=== PATIENT | male | born 1965 | race Caucasian/White ===

== ENCOUNTER 2019-07-31 10:26 | Inpatient (IN) ==
--- NOTE | 2019-07-13 10:40 | PAT Medication Instructions ---
Medication Instructions Date of Service July 13, 2019 Home Medications brimonidine 1 drp OPB BID dorzolamide-timolol 1 drp OPB TID latanoprost 1 drp OPB HS omeprazole 40 mg PO DAILY PRN sucralfate 1 g PO UD Medical Marijuana Card 1 dose UD PRN oxycodone 5 mg PO UD PRN prednisolone acetate 3 drp OPHTHALMIC (EYE) DAILY Continue as directed Medical Marijuana Card 1 dose UD PRN DO NOT take the morning of surgery sucralfate 1 g PO UD Take morning of surgery With a small sip of water, OTHERWISE NOTHING TO EAT OR DRINK AFTER MIDNIGHT: brimonidine 1 drp OPB BID dorzolamide-timolol 1 drp OPB TID omeprazole 40 mg PO DAILY PRN (if needed) oxycodone 5 mg PO UD PRN (okay to take up to 4 hours prior to surgery if needed) prednisolone acetate 3 drp OPHTHALMIC (EYE) DAILY Take evening before surgery brimonidine 1 drp OPB BID dorzolamide-timolol 1 drp OPB TID latanoprost 1 drp OPB HS omeprazole 40 mg PO DAILY PRN (if needed) sucralfate 1 g PO UD oxycodone 5 mg PO UD PRN (if needed) Other Notes If you have any questions please call us at [phone] or [phone] or [phone] or [phone]
--- NOTE | 2019-07-13 15:23 | Anesthesiology Consultation ---
Date of Service July 13, 2019 Assessment & Plan (1) Encounter for pre-operative examination: Chart Review Chart Review: Acceptable Risk for Surgery, Pending: Refer to Additional Notes / Consult section (pending preop labs) and Patient seen in Pre Admission Testing Consults Requested none Teaching & Discussion Pre-Anesthesia Teaching/Discussion Notes: Instructed NPO after midnight before surgery,except medications with 15 cc of water. Medication instructions provided according to the PAT guidelines. History Surgery Operation Date: 07/31/19 13:05 Proposed Procedures p L3-L4 Decompression and Fusion, Possible L2-L4 Fusion, L4-L5 Hardware Removal, Spinal Cord Monitoring - Cuate Kelly DO Height/Weight Height: 6 ft 3 in Weight: 110.9 kg Allergies Allergy/AdvReac Type Severity Reaction Status Date / Time Sulfa (Sulfonamide Allergy Unknown HIVES Verified 07/10/19 14:02 Antibiotics) Medications Home Medications Medication Instructions Recorded Confirmed Last Taken brimonidine 1 drp OPB BID 06/29/19 07/10/19 Unknown dorzolamide-timolol 1 drp OPB TID 06/29/19 07/10/19 Unknown latanoprost 1 drp OPB HS 06/29/19 07/10/19 Unknown omeprazole 40 mg PO DAILY PRN 06/29/19 07/10/19 Unknown sucralfate 1 g PO UD 06/29/19 07/10/19 Unknown Medical Marijuana Card 1 dose UD PRN 07/10/19 07/10/19 Unknown oxycodone 5 mg PO UD PRN 07/10/19 07/10/19 Unknown prednisolone acetate 3 drp OPHTHALMIC (EYE) DAILY 07/10/19 07/10/19 Unknown Past Medical History Medical History Acid reflux Depression Glaucoma History of anxiety History of peptic ulcer History of simple renal cyst right Neck problem Limited side to side ROM when "cold" 2/2 arthritis Sleep apnea could not tolerate CPAP trial- improved symptoms since weight loss Spinal stenosis Exercise / Class Metabolic Activity III < 4 Walking/Shop/Light housework (uses cane PRN) Past Family History Family History Mother Family history of diabetes mellitus (DM) Grandfather Family history of colon cancer Other Cancer Past Surgical History Surgical History History of colonoscopy History of endoscopy UPPER GI History of eye surgery R EYE RETINA TEAR REPAIR (06/2019) History of lumbar fusion History of shoulder surgery LEFT Past Anesthesia History No Hx of Anesthesia Complications Brother: "slow to wake" History of PONV No Hx of PONV and No Hx of Motion Sickness Social History Smoking Status: Current every day smoker tobacco type: cigarettes Smoking cigarettes per day: 10 CIGS/DAY X INTERMITTENT 30+ YEARS Do You Dip or Chew Tobacco: No (HX OF, NONE CURRENT) Hx Alcohol Use: No Hx Substance Use: Yes substance use type: prescription drug and other Substance Use Type Other:: MEDICAL MARIJUANA CARD - ORAL/INHALED PRN PAIN; ADVISED [facility] PROTOCOL Review of Systems Patient denies chest pain, shortness of breath, cough, wheezing, palpitations. Physical Exam Vital Signs VITALS BP 107/74 P 83 TEMP 98.3 SP02 92%RA RESP 16 PHYSICAL Full neck and c-spine range of motion. Full TMJ range of motion. TMD 3 finger breaths Mallampati Score 2 Dentition: lower partial Lungs: clear throughout to auscultation Cardiac: regular rate and rhythm, no murmurs noted Spine: normal Carotid arteries: negative bruit Extremities: no edema Testing Laboratory Results PT 10.6 Seconds (9.0-12.0) 07/13/19 15:57 INR 1.0 (0.9-1.1) 07/13/19 15:57 APTT 25.7 Seconds (21.0-31.0) 07/13/19 15:57 Blood Type O Positive 07/13/19 15:57 Antibody Screen NEGATIVE 07/13/19 15:57 06/29/19 WBC 6.85 H/H 15.9/44.4 PLATELETS 200 SODIUM 140 POTASSIUM 3.7 CHLORIDE 107 CO2 28 BUN 13 CREATININE 1.26 GLUCOSE 146 TSH 0.700 (WNL) UA negative Electrocardiogram Date: 06/29/19 NSR at 66bpm. "Normal" ECG. *Poor data quality* Chest X-Ray Date: 06/29/19 Findings: + NAD
[2019-07-13 16:34] LABS: Partial Thromboplastin Ratio 0.9; Partial Thromboplastin Time 25.7 Seconds (21.0-31.0); Prothrombin Time 10.6 Seconds (9.0-12.0)
--- NOTE | 2019-07-31 09:33 | History & Physical Bridge Note ---
Date of Service July 31, 2019 History & Physical Bridge Note I have examined the patient, reviewed the History & Physical and in the interval since the performance of the History & Physical I have noted the following changes of clinical significance: no changes noted
--- NOTE | 2019-07-31 09:34 | History & Physical Report ---
Date of Service July 31, 2019 Assessment & Plan (1) Spinal stenosis, lumbar region with neurogenic claudication: Decompression and fusion L3-L4 possible fusion L2-L4 hardware removal L4- L5 Present on Admission?: Yes History of Present Illness Chief Complaint: Back and bilateral leg pain Primary Care Provider: Moises Gayle DO This is a 54-year-old male well-known to us that presents with chronic persistent back and bilateral leg pain. After failing extensive course of nonoperative care is here for surgical intervention. Allergies Allergy/AdvReac Type Severity Reaction Status Date / Time Sulfa (Sulfonamide Allergy Unknown HIVES Verified 07/10/19 14:02 Antibiotics) Home Medications Home Medications Medication Instructions Recorded Confirmed Type brimonidine 1 drp OPB BID 06/29/19 07/10/19 History dorzolamide-timolol 1 drp OPB TID 06/29/19 07/10/19 History latanoprost 1 drp OPB HS 06/29/19 07/10/19 History omeprazole 40 mg PO DAILY PRN 06/29/19 07/10/19 History sucralfate 1 g PO UD 06/29/19 07/10/19 History Medical Marijuana Card 1 dose UD PRN 07/10/19 07/10/19 History oxycodone 5 mg PO UD PRN 07/10/19 07/10/19 History prednisolone acetate 3 drp OPHTHALMIC (EYE) DAILY 07/10/19 07/10/19 History Past Med/Surg History Medical History Acid reflux Depression Glaucoma History of anxiety History of peptic ulcer History of simple renal cyst right Neck problem Limited side to side ROM when "cold" 2/2 arthritis Sleep apnea could not tolerate CPAP trial- improved symptoms since weight loss Spinal stenosis Surgical History History of colonoscopy History of endoscopy UPPER GI History of eye surgery R EYE RETINA TEAR REPAIR (06/2019) History of lumbar fusion History of shoulder surgery LEFT Family History Mother Family history of diabetes mellitus (DM) Grandfather Family history of colon cancer Other Cancer Social History Preferred Language: Vietnamese Communication Ability: Effective Government Relations Director Required: No Beliefs That Will Affect Care: None Current Living Situation: Other Current Living Situation Comment: MOTHER IN LAW Other Information That Helps Us Care for You: No Feels Safe at Home: Yes Smoking Status: Current every day smoker Tobacco Type: cigarettes ; Cigarettes Per Day: 10 CIGS/DAY X INTERMITTENT 30+ YEARS ; Do You Dip or Chew Tobacco: No (HX OF, NONE CURRENT) ; Hx Alcohol Use: No Hx Substance Use: Yes substance use type: prescription drug and other Substance Use Type Other:: MEDICAL MARIJUANA CARD - ORAL/INHALED PRN PAIN; ADVISED [facility] PROTOCOL Physical Exam Physical Exam: Patient is alert and oriented neurologically intact.
[~2019-07-31 10:26] MED LIST: ACETAMINOPHEN 500 MG TAB PO SCH; CEFAZOLIN 2000MG 2,000 MG/15 ML SYR IV SCH; CeleBREX 200 MG CAP PO SCH; GABAPENTIN 600 MG DOSE PO SCH; LR 15ML/HR IV SCH
[2019-07-31] MEDS ORDERED: SODIUM CHLORIDE 0.9% 250 ML IV PRN (10:30)
[2019-07-31] MEDS ORDERED: ONDANSETRON INJ 2 MG/ML 2 ML VIAL ONE ×2 (10:34→15:12)
[2019-07-31] MEDS ORDERED: GLYCOPYRROLATE 0.2 MG/ML VIAL ONE ×3 (10:34→15:12)
[2019-07-31] MEDS ORDERED: PROPOFOL IV EMULSION 10 MG/ML 20 ML VIAL IV ONE (10:34)
[2019-07-31] MEDS ORDERED: LIDOCAINE HCL 2% 2 ML VIAL/AMP(20MG/ML) INFIL ONE (10:34)
[2019-07-31] MEDS ORDERED: MIDAZOLAM HCL 1 MG/ML 2ML VIAL ONE (10:34)
[2019-07-31] MEDS ORDERED: DEXAMETHASONE SOD INJ 4 MG/ML VIAL ONE (10:34)
[2019-07-31] MEDS ORDERED: fentaNYL citrate 100 MCG/2 ML VIAL ONE (10:34)
[2019-07-31] MEDS ORDERED: NEOSTIGMINE METHYLSULFATE 1 MG/ML 10ML VIAL ONE ×2 (10:34→15:12)
[2019-07-31] MEDS ORDERED: HYDROmorphone INJ 1 MG/ML SYRINGE IV PRN ×2 (13:08→16:52)
[2019-07-31] MEDS ORDERED: ePHEDrine sulfate 50 MG/ML AMP IV PRN (13:08)
[2019-07-31] MEDS ORDERED: ONDANSETRON INJ 2 MG/ML 2 ML VIAL IV PRN ×2 (13:08→16:52)
[2019-07-31] MEDS ORDERED: ATROPINE SULFATE 0.1 MG/ML 10ML SYR IV PRN (13:08)
[2019-07-31] MEDS ORDERED: BACITRACIN INJ 50,000 UNIT VIAL ONE (13:11)
[2019-07-31] MEDS ORDERED: BUPIVACAINE/EPINEPHRINE 0.5% MPF 1:200,000 30 ML VIAL ONE (13:11)
[2019-07-31] MEDS ORDERED: HYDROmorphone INJ 2 MG/ML SYR/VIAL ONE (13:50)
[2019-07-31] MEDS ORDERED: LABETALOL HCL IV 5 MG/ML 20ML IV ONE (13:50)
[2019-07-31] MEDS ORDERED: FLOSEAL HEMOSTATIC MATRIX 10ML TOP ONE (14:07)
[2019-07-31] MEDS ORDERED: PHENYLEPHRINE 100MCG/ML 5ML SYR ONE (15:12)
--- NOTE | 2019-07-31 15:13 | Operative Report ---
Post Operative Report Pre & Post Diagnosis Operation Date: 07/31/19 13:05 Pre-Op Diagnosis: Lumbar spinal stenosis with neurogenic claudication Herniated nucleus pulposus L3-4 on the right Post-Op Diagnosis: Same I identified the patient and participated in the time-out.: Yes Procedure Operation Date: 07/31/19 13:05 Actual Procedures #1 removal of posterior instrumentation L4-L5. #2 exploration of fusion L4-L5. #3 lumbar decompression with bilateral medial facetectomies with foraminotomies L2-3 L3-4. #4 posterior spinal fusion L3-4. #5 placement posterior instrumentation L3-4. #6 interbody fusion L3-4 per #7 placement of peek cage 13 x 26 mm at L3-4. #8 placement of local autograft in the posterior lateral gutters per #9 placement infuse collagen sponge, master graft in the posterior lateral gutters and ostial amp and interbody space. Surgeon Cuate Kelly, DO Spikemaking Supervisor Rosemarie Muller Estimated Blood Loss 200 Findings See Below The patient is 6 foot 3 inches tall weighing 113 kg with a BMI in excess of 31. The patient's significant body habitus did create significant technical difficulty adding at least 25% increase in operative time. Specimens None Indications This is a 54-year-old male that presents with above-mentioned diagnosis after failing extensive course of nonoperative care is here for surgical intervention. Description of Procedure Patient was met with identified and informed consent obtained. Patient was then taken to the operative suite underwent intubation placed in the prone position the Gregg table on top of the Raji frame. All bony prominences well-padded eyes inspected to ensure no external pressure placed upon the peer at this point the lumbar spine was prepped and draped in a normal sterile fashion. Sharp dissection with the assistance of Bovie cautery was performed down to and exposing the lamina and transverse processes of L3 and instrumentation at L4 and L5 bilaterally. Then proceed remove the hardware bilaterally at L4 and L5 explore the fusion mass noting to be intact. Then performed a complete laminectomy of L3 partial laminectomy of L2 and performing bilateral medial facetectomies and foraminotomies addressing severe stenosis. I also identified a massive sequestered free fragment at L3-4 on the right adhered to the traversing root. This was also removed in its entirety. Pedicle fusion and placed in L3 and L4 bilaterally with assistance of fluoroscopy the purposes adi placed. By way of a transforaminal approach on the right complete discectomy of L3-4 was performed endplates curetted to subcortical bleeding bone and a 13 x 26 mm peek cage filled with osteo-amp bone graft tapped in position. The rods were then locked in final position bilaterally. The transverse processes of L3 and L4 burred to subcortical bleeding bone. Infuse collagen sponge master graft and local autograft placed in the posterior lateral gutters. 15 round BLAYNE drain inserted. The incision was then closed with 1 Vicryl in the fascia 2-0 Vicryl subtenons in 4 Monocryl for final skin closure. Steri-Strip sterile dressings placed. Patient will continue PACU stable disc. Please note Rosemarie Muller present all the entire procedure involved in patient positioning complex portions of the surgery and final skin closure. Lastly spinal cord monitoring was utilized that the procedure no changes noted. I attest to the content of the Intraoperative Record and any orders documented therein. Any exceptions are noted below.
--- NOTE | 2019-07-31 15:18 | Fluoroscopy Report ---
FL lumbar spine 2-3V HISTORY: 54 years-old Male L3-L4 DECOMP AND FUSION L4-L5 HARDWARE REMOVAL COMPARISON: MR lumbar spine 06/29/2019 TECHNIQUE: 2 spot fluoroscopic images of the lumbar spine were obtained utilizing 6.8 seconds fluoros copy time FINDINGS: Laminectomy changes of the lower lumbar spine redemonstrated. Discectomy changes at L3-L4 and L4-L5. Posterior interbody adi and screw fusion at L3-L4. Status post removal of the pedicle screws at L5. M ultilevel spondylitic spurring. IMPRESSION: Fluoroscopic assistance as above. Please see procedural report for further details. The above report was generated using voice recognition software. It may contain grammatical, syntax o r spelling errors. Electronically signed by: Will Wallace M.D. 07/31/2019 3:16 PM
[2019-07-31] MEDS: fentaNYL citrate 100 MCG/2 ML VIAL IV PRN ×4 (15:55→16:10)
--- NOTE | 2019-07-31 16:25 | Anesthesiology Progress Note ---
Date of Service July 31, 2019 Anesthesia Post Procedure Vital Signs Vital Signs: Temp Pulse Pulse Resp BP Pulse Ox 07/31/19 16:16 36.6 C 55 L 14 120/73 97 07/31/19 16:05 67 13 110/78 96 07/31/19 15:55 56 L 12 118/74 99 07/31/19 15:45 67 12 127/84 99 07/31/19 15:35 72 12 115/80 99 07/31/19 15:29 37.1 C 74 12 124/86 98 07/31/19 11:03 36.8 C 82 18 123/95 93 Pain Intensity Back: Pain Intensity: 5 Transfer of Care Handoff Completed per policy Notes Mental Status: alert / awake / arousable Patient Amnestic to Procedure: Yes Nausea / Vomiting: adequately controlled Pain: adequately controlled Airway Patency, RR, SpO2: stable & adequate BP & HR: stable & adequate Hydration State: stable & adequate Anesthetic Complications: no major complications apparent
[2019-07-31] MEDS ORDERED: HYDROmorphone INJ 0.5 MG/0.5 ML SYR IV PRN (16:52)
[2019-07-31] MEDS ORDERED: MAGNESIUM HYDROXIDE SUSP 30 ML UDC PO PRN (16:52)
[2019-07-31] MEDS ORDERED: TRAMADOL HCL 50 MG TABLET PO PRN (16:52)
[2019-07-31] MEDS ORDERED: PANTOprazole 40 MG TAB PO PRN (16:52)
[2019-07-31] MEDS ORDERED: METOCLOPRAMIDE HCL INJ 5 MG/ML 2 ML VIAL IV PRN (16:52)
[2019-07-31] MEDS ORDERED: ACETAMINOPHEN 500 MG TAB PO PRN (16:52)
[2019-07-31] MEDS ORDERED: DO NOT ADMINISTER PNEUMOCOCCAL VACCINE PRN (16:52)
[2019-07-31] MEDS ORDERED: LORazepam 0.5 MG/1 ML VIAL IV PRN (16:52)
[2019-07-31] MEDS ORDERED: ACETAMINOPHEN 1,000 MG/100 ML VIAL IV PRN (16:52)
[2019-07-31] MEDS ORDERED: ONDANSETRON 4 MG TAB PO PRN (16:52)
[2019-07-31] MEDS ORDERED: DO NOT ADMINISTER FLU VACCINE PRN (16:52)
[2019-07-31] MEDS ORDERED: bisacodyL 10 MG SUPP PR PRN (16:52)
[2019-07-31] MEDS ORDERED: FAMOTIDINE 20 MG TAB PO PRN (16:52)
[2019-07-31] MEDS ORDERED: PROMETHAZINE HCL 12.5 MG in SODIUM CHLORIDE 0.9% 50 ML IV PRN (16:52)
[2019-07-31] MEDS ORDERED: SOD PHOSPHATE/SOD BIPHOSPHATE ENEMA 132 ML BTL PR PRN (16:52)
[2019-07-31] MEDS ORDERED: ALUMINUM/MAGNESIUM SUSP 30 ML UDC PO PRN (16:52)
[2019-07-31] MEDS ORDERED: NALOXONE HCL 0.4 MG/1 ML VIAL/CARP IV PRN (16:52)
[2019-07-31] MEDS: OXYCODONE HCL IR 5 MG TAB (IMMEDIATE RELEASE) PO PRN ×2 (17:54→21:58)
[2019-07-31] MEDS: KETOROLAC 30 MG/ML VIAL IV SCH ×2 (18:25→23:41)
[2019-07-31] MEDS: SUCRALFATE 1 GM TAB PO SCH ×2 (18:25→21:34)
[2019-07-31] MEDS ORDERED: BRIMONIDINE TART 0.2% OP SOLN PER DROP CHARGE OPB SCH (21:00)
[2019-07-31] MEDS: LACTATED RINGER'S 1,000 ML IV SCH (21:29)
[2019-07-31] MEDS: BRIMONIDINE TARTRATE 0.2% 5ML OPB SCH ×2 (21:34→22:05)
[2019-07-31] MEDS: DOCUSATE SODIUM/SENNA 50/8.6MG TAB PO SCH (21:34)
[2019-07-31] MEDS: CEFAZOLIN 2000MG 2,000 MG/15 ML SYR IV SCH (21:37)
[2019-07-31] MEDS: DORZOLAMIDE/TIMOLOL 22.3/6.8MG/ML 10 ML BTL OPB SCH (21:39)
[2019-07-31] MEDS: LATANOPROST 0.005% OP SOLN 2.5 ML BTL OPB SCH (21:40)
[2019-08-01] MEDS: LACTATED RINGER'S 1,000 ML IV SCH (03:22)
[2019-08-01 05:12] LABS: Hematocrit (blood only) 35.9 % (42-52); Hemoglobin 13.1 g/dL (14.0-18.0); Immature Granulocytes # (auto) 0.03 K/uL (0.00-0.02); Immature Granulocytes % (auto) 0.2 %; Lymphocytes # (auto) 0.89 K/uL (1.2-3.4); Mean Corpuscular Hemoglobin 32.8 pg (25-34); Mean Corpuscular Hgb Conc 36.5 g/dL (32-36); Mean Corpuscular Volume 89.8 fL (80-100); Mean Platelet Volume 8.3 fL (7.4-10.4); Monocytes # (auto) 0.47 K/uL (0.11-0.59); Monocytes % (auto) 3.7 %; Neutrophils # (auto) 11.24 K/uL (1.4-6.5); Neutrophils % (auto) 89.1 %; Platelet Count 167 K/uL (130-400); RDW Coefficient of Variation 11.8 % (11.5-14.5); RDW Standard Deviation 39.1 fL (36.4-46.3); White Blood Count 12.63 K/uL (4.8-10.8)
[2019-08-01 05:38] LABS: BUN Creatinine Ratio 11.7 (10-20); Calcium 8.4 mg/dl (8.5-10.1); Creatinine Clr Calc Pharmacy 96.5 ml/min; Est GFR (African American) 81.1; Potassium 4.4 mmol/L (3.5-5.1)
[2019-08-01] MEDS: KETOROLAC 30 MG/ML VIAL IV SCH ×2 (05:42→11:46)
[2019-08-01] MEDS: POLYETHYLENE (MIRALAX) 17 GM PACK PO SCH ×4 (05:42→23:55)
[2019-08-01] MEDS: CEFAZOLIN 2000MG 2,000 MG/15 ML SYR IV SCH (05:43)
[2019-08-01] MEDS: OXYCODONE HCL IR 5 MG TAB (IMMEDIATE RELEASE) PO PRN ×4 (07:28→22:20)
[2019-08-01] MEDS: SUCRALFATE 1 GM TAB PO SCH ×4 (07:29→20:21)
[2019-08-01] MEDS: BRIMONIDINE TARTRATE 0.2% 5ML OPB SCH ×3 (08:32→21:38)
[2019-08-01] MEDS: DORZOLAMIDE/TIMOLOL 22.3/6.8MG/ML 10 ML BTL OPB SCH ×3 (08:32→20:22)
--- NOTE | 2019-08-01 09:43 | Orthopedic Progress Note ---
Date of Service August 01, 2019 Assessment & Plan (1) Spinal stenosis, lumbar region with neurogenic claudication: This time we will continue physical therapy ambulate as tolerated. Monitor his BLAYNE output. Anticipate discharge home later half this week. Present on Admission?: Yes Physical Exam Physical Exam: Patient is ambulating halls. He has good strength testing. Appears comfortable. Results & Data Vital Signs (Past 12 Hours) Vital Signs Temp Pulse Resp BP Pulse Ox Pulse Ox 08/01/19 07:48 97 08/01/19 07:40 36.8 C 69 18 117/78 97 08/01/19 03:25 36.9 C 76 18 117/76 96 07/31/19 23:30 36.7 C 71 16 116/73 95
[2019-08-01] MEDS: LORazepam 0.5 MG TAB PO PRN ×2 (15:57→23:55)
[2019-08-01] MEDS: DOCUSATE SODIUM/SENNA 50/8.6MG TAB PO SCH (20:20)
[2019-08-01] MEDS: LATANOPROST 0.005% OP SOLN 2.5 ML BTL OPB SCH (20:22)
[2019-08-01] MEDS: NICOTINE POLACRILEX 2 MG GUM MT PRN (22:03)
[2019-08-02] MEDS: OXYCODONE HCL IR 5 MG TAB (IMMEDIATE RELEASE) PO PRN ×5 (02:23→20:27)
[2019-08-02] MEDS: POLYETHYLENE (MIRALAX) 17 GM PACK PO SCH ×3 (05:52→17:33)
[2019-08-02] MEDS: BRIMONIDINE TARTRATE 0.2% 5ML OPB SCH ×2 (08:22→20:13)
[2019-08-02] MEDS: SUCRALFATE 1 GM TAB PO SCH ×4 (08:22→20:12)
[2019-08-02] MEDS: DORZOLAMIDE/TIMOLOL 22.3/6.8MG/ML 10 ML BTL OPB SCH ×3 (08:22→20:13)
[2019-08-02] MEDS: NICOTINE POLACRILEX 2 MG GUM MT PRN (12:19)
[2019-08-02] MEDS: LORazepam 0.5 MG TAB PO PRN (12:19)
--- NOTE | 2019-08-02 13:33 | Orthopedic Progress Note ---
Date of Service August 02, 2019 Assessment & Plan (1) Spinal stenosis, lumbar region with neurogenic claudication: This time we will continue physical therapy monitor BLAYNE output hopefully discharge home the next few days. Present on Admission?: Yes Subjective Back pain is controlled leg symptoms markedly improved. Physical Exam Physical Exam: Patient has good strength testing. Appears comfortable. Results & Data Vital Signs (Past 12 Hours) Vital Signs Temp Pulse Resp BP Pulse Ox 08/02/19 06:55 36.9 C 65 18 104/64 96
[2019-08-02] MEDS: DOCUSATE SODIUM/SENNA 50/8.6MG TAB PO SCH (20:12)
[2019-08-02] MEDS: LATANOPROST 0.005% OP SOLN 2.5 ML BTL OPB SCH (20:13)
[2019-08-03] MEDS: OXYCODONE HCL IR 5 MG TAB (IMMEDIATE RELEASE) PO PRN ×3 (00:04→11:00)
[2019-08-03] MEDS: LORazepam 0.5 MG TAB PO PRN (00:04)
[2019-08-03] MEDS: POLYETHYLENE (MIRALAX) 17 GM PACK PO SCH (01:04)
[2019-08-03] MEDS ORDERED: DEXAMETHASONE SOD PHOSPHATE 8 MG in SYRINGE 0 ML IV STA (08:19)
--- NOTE | 2019-08-03 08:21 | Discharge Summary ---
Date of Service August 03, 2019 Admission HPI Per Admitting Provider This is a 54-year-old male well-known to us that presents with chronic persistent back and bilateral leg pain. After failing extensive course of nonoperative care is here for surgical intervention. Principal Diagnosis Lumbar spinal stenosis with neurogenic claudication Discharge Data Allergies Allergy/AdvReac Type Severity Reaction Status Date / Time Sulfa (Sulfonamide Allergy Unknown HIVES Verified 07/31/19 10:58 Antibiotics) Consultations 07/31/19 16:52 Consult Case Management - Discharge Planning Routine Procedures Performed Operation Date: 07/31/19 13:05 Actual Procedures p L3-L4 Decompression and Fusion, Interbody Fusion at L3-L4 Bone Morphogenic Protein, Spinal Cord Monitoring(Not Applicable) - Cuate Kelly DO s L4-L5 Hardware Removal,(Not Applicable) - Cuate Kelly DO Ordered Studies 07/31/19 13:05 FL fluoroscopy <1hr Routine FL lumbar spine 2-3V Routine Hospital Course (1) Spinal stenosis, lumbar region with neurogenic claudication: Patient underwent lumbar depression fusion tolerated as well as taken to orthopedic for postoperative. Postop day 1 is up managing well. Progressive postop day 2. Postop day #3 strength is intact pain well controlled subsequent discharge home. Discharge orders instructions from the chart for further review. Total Time Total Time Spent Total Time Spent (In Minutes): 20 minutes Discharge Plan Discharge Items Patient Disposition: Home - Self-Care Reason For Visit: LUMBAR INTERVERTEBRAL DISC DEGENERATION Discharge Diagnosis: Lumbar spinal stenosis with neurogenic claudication Activity: Per Instructions section Non-emergency contact: Primary Care Provider Call non-emergency contact if: you have any medication questions Follow-up/Referrals: Moises Gayle DO [Primary Care Provider] - Diet: Regular Addtl Attending Provider Instructions: ACTIVITY RECOMMENDATIONS: SELF CARE INSTRUCTIONS AFTER THORACIC/LUMBAR FUSIONS 1. You may walk to your tolerance. It is good exercise for your legs and back. Expect some back and intermittent leg aches and pains. 2. You may perform "counter-top" level activities (make a sandwich, demetria with a project, etc.). 3. No bending or lifting of more than 10 pounds or back twisting of any nature (roll like a log when turning in bed). 4. You may ride in a car for 20-30 minutes at a time. No driving until after your first visit with your doctor. 5. Frequent changes of position and restricting sitting to 30 minutes at a time will help limit the amount of back spasms and stiffness you may experience. 6. You may discontinue the use of ambulatory aids (cane, crutches, etc.) once your strength and confidence allow. 7. You may numerical control machine machinist the shower and let water strike your incision when you arrive home at least once daily. Do not take a tub bath, sit in a hot tub or go into a swimming pool until after your first recheck in the office. SPECIAL CARE INSTRUCTIONS: VERY IMPORTANT TO READ AND REVIEW A. Your surgical incision has been closed with a cosmetic suture under the skin that will dissolve in about 6 weeks. In 14 days, you can use a pair of clean scissors and cut the suture that is left outside of the skin at the ends of your incision. 1. The small skin tapes can be removed 7 days after surgery if they have not fallen off by that point. 2. You may keep the wound open to air as much as possible to promote healing after post-op day number 5 unless told otherwise by your doctor. 3. If you think the wound looks like it is becoming infected (redness or worsening drainage) and/or you are experiencing fever, chill or worsening back pain and muscle spasms, contact the office so that we may evaluate you as soon as possible. B. Complications are uncommon, but please contact us if you have any signs or symptoms of: 1. wound infection (fever higher than 102.5 degrees F, redness, separation of wound, drainage, or increasing pain from the incision) 2. blood clots in legs (pain, swelling, redness and warmth in legs) 3. urinary tract infection (fever higher than 102.5 degrees F, burning upon urination or increased frequency of urination) 4. nerve problems (inability to walk on your toes or heels, numbness, loss of bowel or bladder control) 5. any other symptoms that concern you C. Please call the office at if you have any concerns or questions about your operation or recovery. D. No smoking! Smoking drastically decreases the chance of a solid fusion. E. Do not take any anti-inflammatory medications (Indocin, Advil, Motrin, Aspirin, Naprosyn, etc.) as these may inhibit the chance of a solid fusion. Tylenol is okay to take for pain. MANAGING PAIN AFTER SPINAL SURGERY 1. Narcotic medication is intended for short-term use and will be provided for surgical pain. Surgical pain usually lasts for a period of 4-6 weeks. Narcotic medication includes Percocet, Vicodin, Darvocet, Tylenol #3 or Lortab. 2. Longer-term pain is more appropriately treated with non-narcotic medication such as Tylenol ES. 3. Muscle spasm is not appropriately treated with narcotics. Muscle relaxers such as Soma, Flexeril or Skelaxin can be used along with Tylenol ES. 4. Remember that we all live with some "aches and pains". This is not unusual or uncommon after an injury or as we get older. a. Back pain is expected and may include muscle spasms for 4 to 6 weeks after surgery. The pain should gradually improve. If the pain worsens for no apparent reason, please contact the office. b. Intermittent leg pain may also be experienced and should not be concerned about unless it worsens for no apparent reason. If so, please contact the office. 5. We will provide appropriate medication within the normal guidelines of their prescribed use. We will also be very cautious and aware of potential abuse and extended duration of patients' medication needs. a. Pain medications are for your comfort and to assist with sleep and rest so that the tissue can heal. They are not provided in order to return to normal activity and should not be used through the day. To do so or worsening pain at night can result from ongoing tissue damage and development of tolerance to the prescribed medicine. 6. Please allow 2-3 days to process refills. Prescriptions will not be mailed but must be picked up at the office. FOLLOW UP VISIT: Keep your scheduled follow-up appointment. Any questions, please call the office at . Pending Studies at Discharge: No Stand-Alone Forms: [facility] Medications and [employer]out[facility] Order Prescriptions: New oxycodone 5 mg Tablet 5 mg PO Q4H PRN (Reason: pain) Qty: 30 RF: 0 tramadol 50 mg Tablet 50 mg PO Q4H PRN (Reason: pain) Qty: 30 RF: 0 Continued latanoprost 0.005 % drops 1 drp OPB HS RF: 0 sucralfate 1 gram tablet 1 g PO UD RF: 0 omeprazole 40 mg capsule,delayed release(DR/EC) 40 mg PO DAILY PRN (Reason: Acid Reflux) RF: 0 brimonidine 0.2 % drops 1 drp OPB BID RF: 0 dorzolamide-timolol 22.3-6.8 mg/mL drops 1 drp OPB TID RF: 0 oxycodone 5 mg capsule 5 mg PO UD PRN (Reason: pain) RF: 0 Medical Marijuana Card 1 dose UD PRN (Reason: Pain) RF: 0 thiamine HCl (vitamin B1) [Vitamin B-1] 100 mg Tablet 1 PO DAILY RF: 0 Discharge Orders: Discharge Order (Routine); Ordered 08/03/19 Ordered By: Cuate Kelly Admission Data Admit Date/Time: 07/31/19 15:16 Attending Provider: Cuate Kelly Admit Provider: Cuate Kelly Primary Care Provider: Moises Gayle
[2019-08-03] MEDS: BRIMONIDINE TARTRATE 0.2% 5ML OPB SCH (08:28)
[2019-08-03] MEDS: DORZOLAMIDE/TIMOLOL 22.3/6.8MG/ML 10 ML BTL OPB SCH (08:28)
[2019-08-03] MEDS: SUCRALFATE 1 GM TAB PO SCH (08:28)
== END 2019-08-03 12:10 | disposition home or self-care (01) | DRG 455 ==
LOC: ASU 10:26 → 3E 15:16